=== PATIENT | male | born 1980 | race Caucasian/White ===

== ENCOUNTER 2016-12-14 16:32 | Emergency (ER) | payer MEDICAID, OTHER ==
[~2016-12-14] VITALS: Ht 165.1 cm; Wt 65.8 kg
[2016-12-14 16:44] VITALS: BP 160/103
--- NOTE | 2016-12-14 20:14 | NUR ---
AMBULATED TO ER BED 3
--- NOTE | 2016-12-14 20:16 | NUR ---
APATIENT PRESENTS TO ED WITH ABD PAIN X 3 DAYS . PT DENIES N/V/D; SKIN IS PINK/WARM/DRY; AAOX4 WITH EVEN AND STEADY GAIT; LUNGS CLEAR BL; HR EVEN AND REGULAR; PT DENIES ANY FEVER, CP, SOB, OR COUGH AT THIS TIME; PATIENT STATES PAIN OF 10/10 AT THIS TIME; VSS; PATIENT POSITIONED FOR COMFORT; HOB ELEVATED; BEDRAILS UP X2; BED DOWN. ER MD MADE AWARE OF PT STATUS.
--- NOTE | 2016-12-14 20:32 | NUR ---
PT EVALUATED BY PA STUDENT.
[2016-12-14] MEDS ORDERED: ENALAPRIL 10 MG TAB PO ONE (21:35)
[2016-12-14 22:08] VITALS: BP 129/85
== END 2016-12-14 22:08 | disposition home or self-care (01) ==
LOC: MED 16:36
DX: R10.9 Unspecified abdominal pain (principal); R03.0 Elevated blood-pressure reading, without diagnosis of hypertension; F17.200 Nicotine dependence, unspecified, uncomplicated